=== PATIENT | male | born 1930 | race Caucasian/White ===

== ENCOUNTER 2019-03-06 12:20 | Emergency (ER) | payer MEDICARE ==
[~2019-03-06] VITALS: Ht 165.1 cm; Wt 70.8 kg
--- NOTE | 2019-03-06 12:25 | NUR ---
BIB [facility] C/O 1CM LAC TO FOREHEAD S/P GLF , DENIES LOC, NECK, OR BACK PAIN, TO ER BED 9, HOOKED TO MONITOR, CHANGED TO HOSP GOWN, PROVIDED W WARM BLANKET, PATIENT AO x4, TAKING PLAVIX AND ASA, BREATHING EVEN AND UNLABORED, AWAITING MD HART. KEPT SAFE AND COMFORTABLE.
--- NOTE | 2019-03-06 12:27 | NUR ---
DR DEWEY AT BEDSIDE
[2019-03-06] MEDS ORDERED: LIDOCAINE 1%-EPI 1:100,000 20 ML VIAL TP ONE (12:30)
[2019-03-06] MEDS ORDERED: TDAP [DIPH/PERTUSSIS/TET] 0.5 ML VIAL IM ONE ×2 (12:30→12:37)
[2019-03-06] MEDS ORDERED: LIDOCAINE 1%-EPI 1:100,000 20 ML VIAL ONE (12:35)
--- NOTE | 2019-03-06 13:10 | NUR ---
JUAN PABLO OLIVEIRA AT BEDSIDE FOR SUTURING
--- NOTE | 2019-03-06 13:49 | NUR ---
WHEELED OUT VIA RNEY FOR CT SCAN
[2019-03-06] MEDS ORDERED: ACETAMINOPHEN ES 500 MG TABLET ONE (14:20)
--- NOTE | 2019-03-06 14:28 | NUR ---
Patient discharged to home daughter in stable condition. Written and verbal after care instructions given. Patient verbalizes understanding of instruction. Wheeled out via wheelchair, assieted to ride into vehicle by [employer].
[2019-03-06 14:29] VITALS: BP 152/63
[2019-03-06] MEDS ORDERED: ACETAMINOPHEN ES 500 MG TABLET PO ONE (14:30)
[2019-03-06] MEDS ORDERED: ACETAMINOPHEN 325 MG TABLET PO ONE (14:30)
== END 2019-03-06 14:30 | disposition home or self-care (01) ==
LOC: ER 12:21
DX: S01.01XA Laceration without foreign body of scalp, initial encounter (principal); S09.8XXA Other specified injuries of head, initial encounter; I11.9 Hypertensive heart disease without heart failure; R90.82 White matter disease, unspecified; Z95.5 Presence of coronary angioplasty implant and graft; Z95.4 Presence of other heart-valve replacement; W01.0XXA Fall on same level from slipping, tripping and stumbling without subsequent striking against object, initial encounter; Y93.01 Activity, walking, marching and hiking; Y92.89 Other specified places as the place of occurrence of the external cause; Y99.8 Other external cause status
CPT/HCPCS: 12002; 70450; 90471; 90715; 99284; A6403; J3490